=== PATIENT | male | born 1955 | race Caucasian/White ===

== ENCOUNTER 2016-06-11 13:06 | Emergency (ER) | payer MEDICAID ==
[2016-06-11 13:12] VITALS: TEMP 98.6
--- NOTE | 2016-06-11 13:23 | EDPHY ---
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 HISTORY OF PRESENT ILLNESS: The patient is a 61-year-old male with a history of TIA who presents with atraumatic left inner thigh pain that began 4 days ago. The pain is worsened with palpation and has been worsening over that time period. He notes a small, tender lump in the medial thigh with some surrounding erythema. He denies thigh swelling. No fever, chills, chest pain, shortness of breath, palpitations, vomiting, diarrhea, urinary complaints, headache, lightheadedness. He denies recent long travel. He is anticoagulated on baby aspirin daily and was compliant with this today. No previous history of blood clots. REVIEW OF SYSTEMS: Aside from elements discussed in the HPI, a comprehensive 10-point review of systems was reviewed and is negative. PAST MEDICAL HISTORY: TIA. SOCIAL HISTORY: Nonsmoker. VITAL SIGNS: Reviewed by me GENERAL: Well-developed, well-nourished, resting comfortably in no respiratory distress. HEENT: Atraumatic. Eyes: No icterus, no injection. Mouth: moist mucous membranes. No erythema or lesions. Neck: supple with no adenopathy. LUNGS: Clear to auscultation bilaterally, no wheezes, rhonchi or rales. CARDIAC: Regular rate and rhythm, no rubs, murmurs or gallops. ABDOMEN: Soft, nontender, nondistended, bowel sounds normal. BACK: No CVA tenderness. EXTREMITIES: No trauma. No edema. Range of motion is normal throughout. Left lower extremity: 8cm area of faint erythema along the medial thigh. There is a 1cm firm, tender area palpable near the center of the erythema. Pulses intact distally. No calf swelling or pain. NEURO: Alert and oriented, grossly nonfocal. SKIN: Warm and dry, no rash. PSYCHIATRIC: Normal mentation, no agitation. Portions of this note were transcribed by a medical planner. I personally performed a history, physical exam, medical decision making, and confirmed accuracy of information the transcribed note. Source: Patient Exam Limitations: No limitations - Personal History Current Tetanus/Diphtheria Vaccine: Unsure Current Tetanus Diphtheria and Acellular Pertussis (TDAP): Unsure - Medical/Surgical History Hx Asthma: No Hx Chronic Respiratory Disease: No Hx Diabetes: No Hx Cardiac Disease: No Hx Renal Disease: No Hx Cirrhosis: No Hx Alcoholism: No Hx HIV/AIDS: No Hx Splenectomy or Spleen Trauma: No Other PMH: TIA 2011, oral surgery - Social History Smoking Status: Never smoked Constitutional: Initial Vital Signs Temperature (C) 37 C 06/11/16 13:10 Heart Rate 74 06/11/16 13:10 Respiratory Rate 18 06/11/16 13:10 Blood Pressure 136/104 H 06/11/16 13:10 O2 Sat (%) 96 06/11/16 13:10 O2 Delivery Mode Room Air Allergies/Adverse Reactions: No Known Allergies Allergy (Verified 06/11/16 13:09) Home Medications: Medication Instructions Recorded Aspirin 81mg (*) 06/11/16 Medical Decision Making - Diagnostics Imaging: Study: Ultrasound of the: Left lower extremity. Indication: Pain. Results: Superficial thrombophlebitis. No evidence of deep venous thrombus. The study was read by the radiologist, Dr. Grover. I viewed the images myself on the PACS system. ED Course/Re-evaluation: Left thigh ultrasound ordered to rule out DVT and to evaluate presumed superficial thrombophlebitis.. 1456: Ultrasound reported to me as superficial thrombophlebitis by radiologist Dr. Grover. I discussed these results with the patient. Differential Diagnosis: Differential diagnoses for the patient's symptom complex was considered including but not limited to superficial thrombophlebitis, phlebitis, abscess, cellulitis, lymphangitis, DVT. Departure - Departure Disposition: Home, Routine, Self-Care Clinical Impression: Superficial thrombophlebitis Qualifiers: Superficial thrombophlebitis-Involved body area: lower extremity Laterality: left Qualified Code(s): I80.02 - Phlebitis and thrombophlebitis of superficial vessels of left lower extremity Condition: Good Instructions: Superficial Thrombophlebitis (ED) Additional Instructions: Use warm compresses on the affected area. I recommend Ibuprofen (Motrin,Advil) or Naproxen Sodium (Aleve) for pain and anti-inflammatory effects. You may take either one, but do not take both. Your dose is: Ibuprofen 600mg every 6-8 hours with food. OR Naproxen Sodium (Aleve) 220mg every [address] Birch, PCP, or your own primary care physician on Monday to set up a follow up appointment. Return to the emergency department for any serious worsening of condition. Referrals: Ash Birch MD [Medical Doctor] - As per Instructions Report Scribed for: Liana Edmondson Report Scribed by: Pedro Gomez Date of Report: 06/11/16 Time of Report: 13:18
[2016-06-11 15:11] VITALS: BP 136/92; PULSE 87; RESP 20; O2SAT 97
== END 2016-06-11 15:11 | disposition home or self-care (01) ==
DX: I80.02 Phlebitis and thrombophlebitis of superficial vessels of left lower extremity (principal); Z79.82 Long term (current) use of aspirin